=== PATIENT | male | born 2000 | race Two or more races ===

== ENCOUNTER 2023-08-06 09:41 | Emergency (ER) | payer OTHER ==
[~2023-08-06] VITALS: Ht 175.3 cm; Wt 68.0 kg
[~2023-08-06 09:41] MED LIST: ACETAMINOPHEN650 M2 PO; ALBUTEROL1.25 MG/3 IH; ATIVAN0.5 M1 PO; LEXAPRO20 MG; LEXAPRO20 MG PO; MEDROLPACK PO; NORFLEX100MG PO; TUSICOF LIQUID120 ML PO; TUSNEL LIQUID178 ML PO; XOPENEX0.63 MG/3 IH; ZITHROMAX500 MG PO
[2023-08-06] MEDS ORDERED: METHYLPREDNISOLONE SOD SUCC 125 MG VIAL IV STA (10:23)
[2023-08-06] MEDS ORDERED: GUAIFENESIN/DEXTROMETHORPHAN 100 MG/5 ML ML PO STA (10:24)
[2023-08-06] MEDS ORDERED: CEFTRIAXONE SODIUM 1,000 MG VIAL IM STA (10:25)
[2023-08-06] MEDS ORDERED: LEVALBUTEROL HCL 1.25 MG/3 ML SOLUTION IH SCH (10:30)
[2023-08-06] MEDS ORDERED: MAGNESIUM SULFATE IN WATER 50 ML IV ONE (10:30)
[2023-08-06] MEDS ORDERED: IPRATROPIUM BROMIDE 0.5 MG/2.5 ML AMPUL.NEB IH SCH (10:30)
[2023-08-06 11:06] LABS: HEMOGLOBIN 15.7 g/dL (13-16.00); MEAN CELL VOLUME 85.6 fL (80.0-100.00); MEAN CORPUSCULAR HEMOGLOBIN 29.8 pg (27.00-32.0); MEAN CORPUSCULAR HGB CONC 34.9 g/dl (32.0-36.0); PLATELET COUNT 259 K/uL (150-450); RED BLOOD COUNT 5.26 M/uL (4.00-6.00); RED CELL DISTRIBUTION WIDTH 13.4 % (11.5-14.5)
[2023-08-06 11:35] LABS: CALCIUM 9.4 mg/dL (8.5-10.1); GFR 92.6; POTASSIUM 3.51 mEq/L (3.5-5.1)
[2023-08-06 12:30] LABS: ABG PH 7.445 (7.35-7.45); ABG PO2 75.2 mmHg (80-100); BASE EXCESS 1.6 mmol/l; BICARBONATE 25.5 mmol/l (23-25); SaO2 95.6 %
[2023-08-06 12:31] LABS: Tco2 26.7 mmol/l; allen test SATISFACTORY; o2 21 %; puncture site RADIAL RIGHT
[2023-08-06] MEDS ORDERED: MUCINEX DM ER1 EAC1 PO (12:39)
[2023-08-06] MEDS ORDERED: SYMBICORT 16010.2 GM IH (12:39)
[2023-08-06] MEDS ORDERED: PROAIR DIGIHAL90 MCG IH (12:39)
== END 2023-08-06 13:14 | disposition home or self-care (01) ==
LOC: ER 09:42
PROVIDERS: General Practice
DX: J45.901 Unspecified asthma with (acute) exacerbation (principal); Z88.6 Allergy status to analgesic agent; Z88.8 Allergy status to other drugs, medicaments and biological substances; Z20.822 Contact with and (suspected) exposure to COVID-19
CPT/HCPCS: 71046; 82803; 94640; 96372; 99284; J0696; J2930; J3475

== ENCOUNTER 2023-12-16 15:49 | Emergency (ER) | payer OTHER ==
[~2023-12-16] VITALS: Ht 175.3 cm; Wt 72.6 kg
[~2023-12-16 15:49] MED LIST changes: +MUCINEX DM ER1 EAC1 PO; +PROAIR DIGIHAL90 MCG IH; +SYMBICORT 16010.2 GM IH
[2023-12-16] MEDS ORDERED: VERELAN PM100 MG (15:54)
[2023-12-16] MEDS ORDERED: TRAMADOL HCL 50 MG TABLET PO ONE (16:45)
[2023-12-16] MEDS ORDERED: TRAM1TAB98 PO (18:39)
== END 2023-12-16 19:32 | disposition home or self-care (01) ==
LOC: ER 15:50
DX: S60.221A Contusion of right hand, initial encounter (principal); S92.309A Fracture of unspecified metatarsal bone(s), unspecified foot, initial encounter for closed fracture; Y04.0XXA Assault by unarmed brawl or fight, initial encounter; Y93.89 Activity, other specified; Y92.89 Other specified places as the place of occurrence of the external cause; Y99.8 Other external cause status; Z88.1 Allergy status to other antibiotic agents; Z88.6 Allergy status to analgesic agent

== ENCOUNTER → 2024-02-25 | Emergency (ER) | payer OTHER ==
[~2024-02-25] VITALS: Ht 175.3 cm; Wt 81.2 kg
[~2024-02-25] MED LIST changes: +AZITHROMYCIN 500 MG VIAL IV ONE; +GUAIFENESIN/DEXTROMETHORPHAN 10ML BLIST.PACK PO ONE; +IPRATROPIUM/ALBUTEROL SULFATE 3 ML AMPUL.NEB IH SCH; +MAGNESIUM SULFATE 1,000 MG in 0.9 % SODIUM CHLORIDE 50 ML IV ONE; +METHYLPREDNISOLONE SOD SUCC 125 MG VIAL IV ONE; +TRAM1TAB98 PO; +VERELAN PM100 MG
[2024-02-25 20:27] LABS: HEMATOCRIT 44.6 % (39.0-48.0); HEMOGLOBIN 15.4 g/dL (13-16.00); MEAN CELL VOLUME 85.7 fL (80.0-100.00); MEAN CORPUSCULAR HEMOGLOBIN 29.7 pg (27.00-32.0); MEAN CORPUSCULAR HGB CONC 34.6 g/dl (32.0-36.0); PLATELET COUNT 276 K/uL (150-450)
[2024-02-25 21:18] LABS: ALBUMIN 4.3 gm/dL (3.4-5.0); BILIRUBIN TOTAL 1.11 mg/dL (0.3-1.2); CALCIUM 9.7 mg/dL (8.5-10.1); CREATININE SERUM 0.82 mg/dL (0.70-1.30); GFR 115.43; POTASSIUM 3.05 mEq/L (3.5-5.1); TOTAL PROTEIN 7.3 gm/dL (6.4-8.2)
[2024-02-25 21:24] LABS: ABG PO2 84.5 mmHg (80-100); ABG pCO2 36.8 mmHg (35-45); BICARBONATE 22.3 mmol/l (23-25); SaO2 96.2 %; Tco2 23.4 mmol/l
[2024-02-25 21:26] LABS: allen test SATISFACTORY; o2 21 %; puncture site RADIAL LEFT
== END | disposition left against medical advice (07) ==
LOC: ER 18:57
PROVIDERS: General Practice
DX: J45.909 Unspecified asthma, uncomplicated (principal); R06.02 Shortness of breath; R05.9 Cough, unspecified; I10 Essential (primary) hypertension; Z88.0 Allergy status to penicillin; Z88.1 Allergy status to other antibiotic agents

== ENCOUNTER 2024-02-26 08:18 | Inpatient (IN) | payer OTHER ==
[~2024-02-26] VITALS: Ht 175.3 cm; Wt 72.6 kg
[~2024-02-26 08:18] MED LIST changes: -AZITHROMYCIN 500 MG VIAL IV ONE; -GUAIFENESIN/DEXTROMETHORPHAN 10ML BLIST.PACK PO ONE; -IPRATROPIUM/ALBUTEROL SULFATE 3 ML AMPUL.NEB IH SCH; -MAGNESIUM SULFATE 1,000 MG in 0.9 % SODIUM CHLORIDE 50 ML IV ONE; -METHYLPREDNISOLONE SOD SUCC 125 MG VIAL IV ONE
--- NOTE | 2024-02-26 08:28 | NUR ---
PTE ALERTA Y ORIENTADO X3 REFIRE TENER EPISODIO DE ASMA. AL MOMENTO DE TRIAGE SE OYE PTE CON SIBILANCIAS AL RESPIRAR, SATURANDO AL 98% Y HABLANDO EN ORACIONES CORTAS. NOTIFICA QUE EL SHRUTI DE TY ESTUVO PRESENTE EN LA UNIDAD. SE MIDEN SV Y SE UBICA.
[2024-02-26] MEDS ORDERED: PIPERACILLIN/TAZOBACTAM SODIUM 4.5 GM VIAL IV SCH (08:46)
[2024-02-26] MEDS ORDERED: FAMOtidine 10 MG/ML (4ML VIAL) IV ONE (09:00)
[2024-02-26] MEDS ORDERED: METHYLPREDNISOLONE SOD SUCC 125 MG VIAL IV ONE (09:00)
[2024-02-26] MEDS ORDERED: IPRATROPIUM/ALBUTEROL SULFATE 3 ML AMPUL.NEB IH SCH (09:00)
[2024-02-26] MEDS ORDERED: 0.9 % SODIUM CHLORIDE 1,000 ML IV SCH (09:00)
[2024-02-26] MEDS ORDERED: LEVALBUTEROL HCL 1.25 MG/3 ML SOLUTION IH SCH (09:00)
--- NOTE | 2024-02-26 09:04 | NUR ---
SE RECIBE PTE ALERTA Y ORIENTADO X3, RN MERCHANT EDUCA A PTE SOBRE TX MEDICO, EL MISMO REFIERE ENTENDER, SE SERA MUESTRAS DE LAB BAJO MEDIDAS ASEPTICAS Y SE ADMINISTRAN MEDICAMENTOS [facility] MEDICA, SE REALIZA EKG Y SE PRESENTA A , SE NOTIFICA PLACA PENDIENTE.
[2024-02-26 09:39] LABS: ABG PH 7.392 (7.35-7.45); ABG PO2 74.2 mmHg (80-100); ABG pCO2 36.1 mmHg (35-45); BASE EXCESS -2.8 mmol/l; BICARBONATE 21.5 mmol/l (23-25); SaO2 94.4 %; Tco2 22.6 mmol/l
[2024-02-26 10:22] LABS: HEMATOCRIT 44.6 % (39.0-48.0); HEMOGLOBIN 15.4 g/dL (13-16.00); MEAN CELL VOLUME 86.2 fL (80.0-100.00); MEAN CORPUSCULAR HEMOGLOBIN 29.7 pg (27.00-32.0); MEAN CORPUSCULAR HGB CONC 34.5 g/dl (32.0-36.0); PLATELET COUNT 293 K/uL (150-450); RED BLOOD COUNT 5.18 M/uL (4.00-6.00); RED CELL DISTRIBUTION WIDTH 13.9 % (11.5-14.5)
[2024-02-26 10:47] LABS: ALBUMIN 4.4 gm/dL (3.4-5.0); BILIRUBIN TOTAL 0.6 mg/dL (0.3-1.2); CALCIUM 9.9 mg/dL (8.5-10.1); CREATININE SERUM 0.81 mg/dL (0.70-1.30); GFR 117.07; GLOBULINA 3.5 G/DL (2.4-3.5); POTASSIUM 3.94 mEq/L (3.5-5.1); TOTAL PROTEIN 7.9 gm/dL (6.4-8.2)
[2024-02-26] MEDS ORDERED: MAGNESIUM SULFATE IN WATER 4 GM/100 ML PIGGYBACK IV STA (10:51)
[2024-02-26] MEDS ORDERED: MAGNESIUM SULFATE IN WATER 50 ML IV ONE (11:00)
[2024-02-26 11:33] LABS: URINE APPEARANCE Clear; URINE BILIRRUBIN Negative (NEGATIVE); URINE BLOOD Negative; URINE COLOR Yellow; URINE GLUCOSE Negative (NEGATIVE); URINE KETONE Negative (NEGATIVE); URINE LEUKOCYTE Negative; URINE NITRATE Negative; URINE PROTEIN Negative (NEGATIVE); URINE UROBILINOGEN 0.2 E.U./dl
[2024-02-26 12:01] LABS: URINE BACTERIA 2.5 uL (0.0-1933); URINE EPITHELIAL CELLS 0.1 uL (0.0-38.8); URINE RBC 0.9 uL (0.0-20.8); URINE WBC 0 uL (0.0-23.2)
[2024-02-26 12:17] LABS: allen test SATISFACTORY; o2 21 %; puncture site RADIAL LEFT
[2024-02-26] MEDS ORDERED: ALBUTEROL SULFATE 3 ML/2.5 MG AMPUL.NEB IH SCH ×2 (13:22→13:26)
[2024-02-26] MEDS ORDERED: METHYLPREDNISOLONE SOD SUCC 40 MG VIAL IV SCH (13:29)
[2024-02-26] MEDS ORDERED: SODIUM CHLORIDE 0.45 % 1,000 ML IV SCH (13:30)
[2024-02-26] MEDS ORDERED: FF) Escitalopram Oxalate 5MG TABLET PO SCH (13:39)
[2024-02-26] MEDS ORDERED: ACETAMINOPHEN 325 MG TABLET PO PRN (13:45)
[2024-02-26] MEDS ORDERED: ACETAMINOPHEN 500 MG GEL..CAP PO PRN (14:15)
[2024-02-26 15:57] VITALS: BP 110/60
[2024-02-26] MEDS ORDERED: FAMOTIDINE/PF 20 MG in 0.9 % SODIUM CHLORIDE 100 ML IV SCH (17:00)
[2024-02-26] MEDS ORDERED: ESCITALOPRAM 20 MG PO SCH (17:00)
[2024-02-26 17:52] VITALS: BP 129/73; O2SAT 99
[2024-02-27] MEDS ORDERED: METHYLPREDNISOLONE SOD SUCC 125 MG VIAL IV SCH
[2024-02-27] MEDS ORDERED: LEVALBUTEROL HCL 1.25 MG/3 ML SOLUTION IH SCH (01:00)
[2024-02-27 01:48] VITALS: BP 125/70; O2SAT 100
[2024-02-27 06:25] LABS: CREATININE SERUM 0.96 mg/dL (0.70-1.30); GFR 96.23; POTASSIUM 4.65 mEq/L (3.5-5.1)
[2024-02-27 08:41] LABS: ABG PH 7.395 (7.35-7.45); ABG PO2 109.5 mmHg (80-100); ABG pCO2 36.6 mmHg (35-45); BASE EXCESS -2.4 mmol/l; BICARBONATE 21.9 mmol/l (23-25); SaO2 98.2 %
[2024-02-27] MEDS ORDERED: BUDESONIDE 0.5 MG/2 ML AMPUL.NEB IH SCH (09:00)
[2024-02-27] MEDS ORDERED: IPRATROPIUM BROMIDE 0.5 MG/2.5 ML AMPUL.NEB IH SCH (09:00)
[2024-02-27 09:09] VITALS: BP 127/58; O2SAT 99
[2024-02-27] MEDS ORDERED: CEFTRIAXONE SODIUM 2,000 MG in 0.9 % SODIUM CHLORIDE 100 ML IV SCH (10:56)
[2024-02-27] MEDS ORDERED: GUAIFENESIN 200 MG/10 ML BLIST.PACK PO SCH (10:57)
[2024-02-27] MEDS ORDERED: MONTELUKAST SODIUM 10 MG TABLET PO SCH (10:57)
[2024-02-27] MEDS ORDERED: BENZONATATE 100 MG CAPSULE PO SCH (13:00)
[2024-02-27 15:47] LABS: allen test SATISFACTORY; o2 28 %; puncture site RADIAL RIGHT
[2024-02-27 16:00] VITALS: BP 110/62; O2SAT 98
[2024-02-28 01:55] VITALS: BP 120/72; O2SAT 98
[2024-02-28 11:09] VITALS: BP 115/69; O2SAT 99
[2024-02-28] MEDS ORDERED: METHYLPREDNISOLONE SOD SUCC 40 MG VIAL IV SCH (17:00)
[2024-02-28] MEDS ORDERED: METHYLPREDNISOLONE SOD SUCC 125 MG VIAL IV SCH (17:00)
[2024-02-28 17:34] VITALS: BP 132/66
[2024-02-29 01:42] VITALS: BP 125/75; O2SAT 100
[2024-02-29 08:37] VITALS: BP 107/65
[2024-02-29 14:45] LABS: MEAN CELL VOLUME 85.4 fL (80.0-100.00); MEAN CORPUSCULAR HEMOGLOBIN 29.3 pg (27.00-32.0); MEAN CORPUSCULAR HGB CONC 34.3 g/dl (32.0-36.0); PLATELET COUNT 239 K/uL (150-450)
[2024-02-29 15:12] LABS: ALBUMIN 3.6 gm/dL (3.4-5.0); BILIRUBIN TOTAL 0.39 mg/dL (0.3-1.2); CREATININE SERUM 0.9 mg/dL (0.70-1.30); GFR 103.67; GLOBULINA 2.9 G/DL (2.4-3.5); POTASSIUM 4.26 mEq/L (3.5-5.1); TOTAL PROTEIN 6.5 gm/dL (6.4-8.2)
[2024-02-29] MEDS ORDERED: METHYLPREDNISOLONE SOD SUCC 40 MG VIAL IV SCH (17:00)
[2024-02-29 17:15] VITALS: BP 117/56
[2024-02-29] MEDS ORDERED: FAMOtidine 20 MG TABLET PO SCH (21:00)
[2024-02-29 23:51] VITALS: BP 116/74; O2SAT 99
[2024-03-01 08:10] VITALS: BP 114/70
[2024-03-01] MEDS ORDERED: ESCITALOPRAM 20 MG PO SCH (09:00)
== END 2024-03-01 13:55 | disposition home or self-care (01) | DRG 203 ==
LOC: ER 08:20 → MEDJ 13:52
PROVIDERS: General Practice; ADMIT Internal Medicine; ATTEND Internal Medicine
DX: J45.51 Severe persistent asthma with (acute) exacerbation (principal)

== ENCOUNTER 2024-07-04 15:35 | Inpatient (IN) | payer OTHER ==
[~2024-07-04] VITALS: Ht 175.3 cm; Wt 78.0 kg
[2024-07-04] MEDS ORDERED: FLONASE16 GM NS (15:41)
[2024-07-04] MEDS ORDERED: CHILDREN'S CLARI5 MG (15:41)
[2024-07-04] MEDS ORDERED: XOPENEX CO1.25 MG/0. (15:41)
--- NOTE | 2024-07-04 15:43 | NUR ---
PTE ALERTA Y ORIENTADO X3 REFIERE TENER ASMA, AL MOMENTO DE TRIAGE PTE SE OBSERVA RESPIRANDO PROFUNDO, SE ESCUHCA SILBIDO AL HABLAR, SATURA AL 94%, HABLA EN ORACIONES CORTAS Y SE ESCUCHA TOSER ACTIVAMENTE. SE MIDEN SV Y SE UBICA.
[2024-07-04] MEDS ORDERED: METHYLPREDNISOLONE SOD SUCC 125 MG VIAL IV ONE (16:30)
[2024-07-04] MEDS ORDERED: LEVALBUTEROL HCL 1.25 MG/3 ML SOLUTION IH SCH ×2 (16:30→21:00)
--- NOTE | 2024-07-04 16:32 | NUR ---
PTE ALERTA Y ORIENTADO X3, RN FELIZ ORIENTA SOBRE TX MEDICO Y EL MISMO REFIERE ENTENDER. CANALIZA Y COLECTA MUESTRAS DE LAB BAJO MEDIDAS ASEPTICAS. ADMINSITRA MEDS [facility] MEDICA, PTE NO PRESENTA REACCION. SE NOTIFICAN TERAPIAS POR SECRETARIA DE TURNO. PEND A REALIZAR XRAY
[2024-07-04] MEDS ORDERED: METHYLPREDNISOLONE SOD SUCC 125 MG VIAL ONE (16:36)
[2024-07-04] MEDS ORDERED: MAGNESIUM SULFATE 50% 1,000 MG/2 ML VIAL ONE (16:36)
[2024-07-04] MEDS ORDERED: WATER FOR INJ.,BACTERIOSTATIC 30 ML VIAL IJ ONE (16:36)
[2024-07-04] MEDS ORDERED: LEVALBUTEROL HCL 1.25 MG/3 ML SOLUTION IH ONE (17:01)
[2024-07-04 17:14] LABS: HEMATOCRIT 46.7 % (39.0-48.0); HEMOGLOBIN 15.5 g/dL (13-16.00); MEAN CELL VOLUME 84.8 fL (80.0-100.00); MEAN CORPUSCULAR HEMOGLOBIN 28.2 pg (27.00-32.0); MEAN CORPUSCULAR HGB CONC 33.3 g/dl (32.0-36.0); PLATELET COUNT 337 K/uL (150-450); RED CELL DISTRIBUTION WIDTH 13.4 % (11.5-14.5)
[2024-07-04 17:16] LABS: ABG PH 7.435 (7.35-7.45); ABG PO2 71.6 mmHg (80-100); ABG pCO2 32.3 mmHg (35-45); BICARBONATE 21.2 mmol/l (23-25); SaO2 94.7 %; Tco2 22.2 mmol/l
[2024-07-04 17:24] LABS: ALBUMIN 4.5 gm/dL (3.4-5.0); BILIRUBIN TOTAL 0.67 mg/dL (0.3-1.2); CALCIUM 9.9 mg/dL (8.5-10.1); CREATININE SERUM 0.95 mg/dL (0.70-1.30); GFR 97.4; GLOBULINA 3.4 G/DL (2.4-3.5); POTASSIUM 4.07 mEq/L (3.5-5.1); TOTAL PROTEIN 7.9 gm/dL (6.4-8.2)
[2024-07-04] MEDS ORDERED: MAGNESIUM SULFATE/D5W 100 ML IV NR (17:45)
[2024-07-04] MEDS ORDERED: AZITHROMYCIN 500 MG VIAL IV ONE ×2 (19:00→19:53)
[2024-07-04] MEDS ORDERED: CEFTRIAXONE SODIUM 2,000 MG in 0.9 % SODIUM CHLORIDE 100 ML IV SCH (20:57)
[2024-07-04] MEDS ORDERED: AZITHROMYCIN 500 MG in DEXTROSE 5 % IN WATER 250 ML IV SCH (20:57)
[2024-07-04] MEDS ORDERED: MONTELUKAST SODIUM 10 MG TABLET PO SCH (20:57)
[2024-07-04] MEDS ORDERED: ACETAMINOPHEN 500 MG GEL..CAP PO PRN (21:00)
[2024-07-04] MEDS ORDERED: IPRATROPIUM BROMIDE 0.5 MG/2.5 ML AMPUL.NEB IH SCH (21:00)
[2024-07-04] MEDS ORDERED: GUAIFEN/DEXTROMETHORPHAN/PE 10 ML BLIST.PACK PO SCH (21:00)
[2024-07-04] MEDS ORDERED: 0.9 % SODIUM CHLORIDE 1,000 ML IV SCH (21:00)
[2024-07-04 22:58] LABS: o2 21 %
[2024-07-04 22:59] LABS: allen test SATISFACTORY; puncture site RADIAL RIGHT
[2024-07-05] MEDS ORDERED: METHYLPREDNISOLONE SOD SUCC 40 MG VIAL IV SCH
[2024-07-05 00:04] VITALS: BP 102/67; O2SAT 97
[2024-07-05] MEDS ORDERED: CEFTRIAXONE SODIUM 2,000 MG VIAL ONE (00:15)
[2024-07-05] MEDS ORDERED: GUAIFEN/DEXTROMETHORPHAN/PE 10 ML BLIST.PACK PO ONE (00:15)
[2024-07-05] MEDS ORDERED: LEVALBUTEROL HCL 1.25 MG/3 ML SOLUTION IH ONE (00:15)
[2024-07-05] MEDS ORDERED: IPRATROPIUM BROMIDE 0.5 MG/2.5 ML AMPUL.NEB IH ONE (00:15)
[2024-07-05] MEDS ORDERED: METHYLPREDNISOLONE SOD SUCC 40 MG VIAL ONE (00:15)
[2024-07-05] MEDS ORDERED: MONTELUKAST SODIUM 10 MG TABLET PO ONE (00:15)
[2024-07-05 01:15] LABS: PARTIAL THROMBOPLASTIN TIME 24.8 SECONDS (22.0-34.0); PROTHROMBIN TIME 10.9 SECONDS (9.0-11.5)
[2024-07-05 02:07] LABS: URINE APPEARANCE Clear; URINE BILIRRUBIN Negative (NEGATIVE); URINE BLOOD Negative; URINE COLOR Yellow; URINE GLUCOSE Negative (NEGATIVE); URINE KETONE Negative (NEGATIVE); URINE LEUKOCYTE Negative; URINE NITRATE Negative; URINE PROTEIN Negative (NEGATIVE); URINE UROBILINOGEN 0.2 E.U./dl
[2024-07-05 02:10] LABS: URINE BACTERIA 36.7 uL (0.0-1933); URINE EPITHELIAL CELLS 1.8 uL (0.0-38.8); URINE RBC 6.6 uL (0.0-20.8)
[2024-07-05 02:23] LABS: URINE WBC 0.4 uL (0.0-23.2)
[2024-07-05 02:43] VITALS: BP 123/73
[2024-07-05 08:00] VITALS: BP 124/73; O2SAT 100
[2024-07-05] MEDS ORDERED: FAMOTIDINE/PF 20 MG in 0.9 % SODIUM CHLORIDE 8 ML IV PUSH SCH (09:00)
[2024-07-05] MEDS ORDERED: VERAPAMIL HCL 120 MG TABLET.SA PO SCH (09:00)
[2024-07-05 16:15] VITALS: BP 107/59; O2SAT 99
[2024-07-05] MEDS ORDERED: LORATADINE 10 MG TABLET PO SCH (20:56)
[2024-07-05] MEDS ORDERED: FLUTICASONE PROPIONATE 50 MCG SPRAY NASAL SCH (20:57)
[2024-07-06 02:16] VITALS: BP 106/61; O2SAT 100
[2024-07-06] MEDS ORDERED: SODIUM CHLORIDE 0.45 % 1,000 ML IV SCH (08:15)
[2024-07-06] MEDS ORDERED: METHYLPREDNISOLONE ACETATE 80 MG/ML VIAL IM ONE (08:30)
[2024-07-06] MEDS ORDERED: FAMOtidine 20 MG TABLET PO SCH (09:00)
[2024-07-06] MEDS ORDERED: BUDESONIDE 0.5 MG/2 ML AMPUL.NEB IH SCH (09:00)
[2024-07-06 09:10] VITALS: BP 115/63; O2SAT 98
[2024-07-06 18:42] VITALS: BP 117/70; O2SAT 100
[2024-07-07 01:30] VITALS: BP 114/57; O2SAT 100
[2024-07-07 09:17] VITALS: BP 112/67; O2SAT 99
[2024-07-07] MEDS ORDERED: AZITHROMYCIN 500 MG VIAL IV SCH (10:49)
[2024-07-07] MEDS ORDERED: AZITHROMYCIN 500 MG VIAL IV ONE (12:53)
[2024-07-07 18:32] VITALS: BP 117/72; O2SAT 100
[2024-07-08 01:19] VITALS: BP 120/67
[2024-07-08 08:08] VITALS: BP 107/56; O2SAT 99
[2024-07-08] MEDS ORDERED: AZITHROMYCIN 500 MG VIAL IV ONE (08:19)
[2024-07-08 18:25] VITALS: BP 120/70; O2SAT 100
[2024-07-08] MEDS ORDERED: SODIUM CHLORIDE FOR INHALATION 1 VIAL.NEB IH SCH (21:00)
[2024-07-08 21:15] LABS: HEMATOCRIT 46.2 % (39.0-48.0); HEMOGLOBIN 15.4 g/dL (13-16.00); MEAN CELL VOLUME 85.3 fL (80.0-100.00); MEAN CORPUSCULAR HEMOGLOBIN 28.4 pg (27.00-32.0); MEAN CORPUSCULAR HGB CONC 33.3 g/dl (32.0-36.0); PLATELET COUNT 260 K/uL (150-450); RED BLOOD COUNT 5.42 M/uL (4.00-6.00); RED CELL DISTRIBUTION WIDTH 13.4 % (11.5-14.5)
[2024-07-08 21:37] LABS: ALBUMIN 3.7 gm/dL (3.4-5.0); ALKALINE PHOSPHATASE 77 U/L (50-136); ALT/SGPT 38 U/L (12-78); ANION GAP 9 (10.0-20.0); AST/SGOT 15 U/L (15-37); BILIRUBIN TOTAL 0.29 mg/dL (0.3-1.2); BLOOD UREA NITROGEN 22 mg/dL (7-18); BUN CREA RATIO 25 (7.0-25.0); CALCIUM 9.2 mg/dL (8.5-10.1); CARBON DIOXIDE 30 mEq/L (21-32); CHLORIDE 104 mmol/L (98-107); CREATININE SERUM 0.87 mg/dL (0.70-1.30); GFR 107.81; GLOBULINA 3.2 G/DL (2.4-3.5); GLUCOSE FASTING 136 mg/dL (65-100); OSMOLALITY SERUM 281 MOSM/KG (275-295); POTASSIUM 4.75 mEq/L (3.5-5.1); SODIUM 138 mmol/L (136-145); TOTAL PROTEIN 6.9 gm/dL (6.4-8.2)
[2024-07-08 21:38] LABS: C-REACTIVE PROTEIN < 0.29 MG/DL (0.00-0.29)
[2024-07-09 03:01] VITALS: BP 141/63; O2SAT 100
[2024-07-09 08:11] VITALS: BP 107/67; O2SAT 100
[2024-07-09] MEDS ORDERED: AZITHROMYCIN 500 MG VIAL IV ONE (09:02)
[2024-07-09 17:23] VITALS: BP 115/70; O2SAT 99
[2024-07-10 01:45] VITALS: BP 116/69; O2SAT 99
[2024-07-10 08:58] VITALS: BP 105/66
[2024-07-10] MEDS ORDERED: LORATADINE10 MG PO (14:15)
[2024-07-10] MEDS ORDERED: XOPENEX CO1.25 MG/0. IH (14:15)
[2024-07-10] MEDS ORDERED: VERAPAMIL ER120 MG PO (14:15)
[2024-07-10] MEDS ORDERED: FAMOTIDINE20 MG PO (14:16)
[2024-07-10] MEDS ORDERED: FLONASE16 GM NASAL (14:16)
[2024-07-10] MEDS ORDERED: MONTELUKAST SOD10 MG PO (14:16)
[2024-07-10] MEDS ORDERED: ALTIPRES LIQUI473 ML PO (14:16)
[2024-07-10] MEDS ORDERED: BUDESONIDE0.5 MG/2 M IH (14:17)
== END 2024-07-10 14:29 | disposition home or self-care (01) | DRG 202 ==
LOC: ER 15:38 → MEDI 21:52 → MEDJ 21:52 → SEC-K 07-05 00:24 → MEDJ 07-05 00:27
PROVIDERS: General Practice; ADMIT Internal Medicine; ATTEND Internal Medicine
PROC: 3E0F7GC Introduction of Other Therapeutic Substance into Respiratory Tract, Via Natural or Artificial Opening (ICD-10-PCS; principal; 2024-07-04)
DX: J45.41 Moderate persistent asthma with (acute) exacerbation (principal); R65.10 Systemic inflammatory response syndrome (SIRS) of non-infectious origin without acute organ dysfunction; J20.9 Acute bronchitis, unspecified